=== PATIENT | female | born 1985 | race Caucasian/White ===

== ENCOUNTER 2016-10-18 05:55 | Outpatient (CLI) | payer MEDICAID ==
[~2016-10-18] VITALS: Ht 167.6 cm; Wt 92.1 kg
[~2016-10-18 05:55] MED LIST: ALBU17AE23 IH; CEPH500C PO; CPR500T PO; CYCL10TA9 PO; DULO20CA PO; FLC100T1 PO; HYDR-3583 PO; HYDR-707 PO; LEVO500T69 PO; METR500T PO; NAPR-243 PO; OLAN1CAP5 PO; TRAZ150T42 PO
== END 2016-10-18 11:38 ==
LOC: PREOP 05:55
PROVIDERS: ATTEND Surgery
DX: Z01.818 Encounter for other preprocedural examination (principal); R19.5 Other fecal abnormalities

== ENCOUNTER 2016-10-22 09:46 | Day surgery (SDC) | payer MEDICAID ==
[2016-10-22 09:50] VITALS: BP 113/71
[2016-10-22] MEDS ORDERED: NS IV 1000 ML 1,000 ML IV STA (09:56)
[2016-10-22] MEDS ORDERED: fentaNYL INJECTION 100 MCG/2 ML AMP ONE (12:39)
[2016-10-22] MEDS ORDERED: proPOfol 200 MG/20 ML (DIPRIVAN) VIAL IV ONE (12:39)
[2016-10-22] MEDS ORDERED: MIDAZOLAM 2 MG/2 ML (VERSED) VIAL ONE (14:03)
--- NOTE | 2016-10-22 14:13 | Progress Note-Pre Operative ---
Pre-Operative Progress Note H&P Reviewed The H&P was reviewed, patient examined and no changes noted. Date H&P Reviewed: October 22, 2016 Time H&P Reviewed: 14:10 Pre-Operative Diagnosis: occult positive stool DILIP IVEY DO October 22, 2016 2:13 pm
--- NOTE | 2016-10-22 14:52 | Progress Note-Post Operative ---
Post-Operative Progess Note Surgeon (s)/Feed Research Aide (s) Surgeon DILIP IVEY DO Feed Research Aide: na Pre-Operative Diagnosis occult positive stool Post-Operative Diagnosis normal egd/colonoscopy Procedure & Operative Findings Date of Procedure 10/22/16 Procedure Performed/Findings egd and colonoscopy Anesthesia Type per rooms director Estimated Blood Loss Estimated blood loss (mL): none Specimens/Packing Specimens Removed none DILIP IVEY DO October 22, 2016 2:52 pm
--- NOTE | 2016-10-22 14:53 | Discharge Inst-Simple/Standard ---
Discharge Inst-Standard Patient Instructions/Follow Up Plan of Care/Instructions/FU: Follow up with PCP. Follow up with Dr. Edouard as needed Activity as Tolerated: Yes Discharge Diet: No Restrictions COLLIN CATHERINE APRN October 22, 2016 14:53
[2016-10-22 15:05] VITALS: BP 105/55
[2016-10-22 15:25] VITALS: BP 107/71
[2016-10-22 15:40] VITALS: BP 107/71
[2016-10-22] MEDS ORDERED: HURRICAINE EXT TUBE (BENZOCAINE) ONE (15:43)
[2016-10-22] MEDS ORDERED: HURRICAINE EXT TUBE (BENZOCAINE) XX ONE (17:15)
--- NOTE | 2016-10-23 01:46 | OPERATIVE REPORT ---
DATE OF SERVICE: PREOPERATIVE DIAGNOSIS: Occult positive stool. POSTOPERATIVE DIAGNOSIS: Normal esophagogastroduodenoscopy, colonoscopy. PROCEDURE: Esophagogastroduodenoscopy and colonoscopy. SURGEON: Dr. Dilip Edouard. ANESTHESIA: Per DEPARTMENT MANAGER. ESTIMATED BLOOD LOSS: None. COMPLICATIONS: None. INDICATIONS: The patient is a 30-year-old female who was found to have occult positive stool. She was recommended to have EGD and colonoscopy. She was explained risks and benefits and wished to proceed with procedures. Consent was signed and in chart. PROCEDURE: The patient was taken to the endoscopy suite, placed in left lateral recumbent position. Timeout was performed. Scope was inserted into mouth, down the esophagus, stomach and into the duodenum without difficulty. There were no polyps, mass or ulcerations visualized within the duodenum. The scope was slowly retracted back into the stomach, which further insufflated. There were no polyps, mass or ulcerations present within the stomach. No erythematous changes. The scope was retroflexed noting no further pathology. Scope was returned to its normal position, slowly withdrawn back into the distal esophagus, which had normal appearance. No erythematous changes, polyps, masses or ulcerations. Scope was slowly retracted until completely removed noting no further pathology. Digital rectal exam was performed, there were no palpable polyps, masses or ulcerations. No visual position of any abnormalities. Scope was inserted into the rectum and then advanced all the way to the cecum with minimal difficulty. Prep was adequate. Scope was then slowly retracted back. There were no polyps, masses or ulcerations within the cecum. The ileocecal valve was then partially intubated noting no other pathology. Scope was brought back into the colon, which demonstrated no polyps, masses or ulcerations within the ascending, transverse, descending and sigmoid colon. Once in the rectum, scope was also retroflexed noting no other pathology. Scope was returned to its normal position, slowly withdrawn until completely removed. The patient tolerated procedure well without any complications. She was taken to recovery room in stable condition. No source of bleeding at this time. Occult positive stools could be related to some minimal hemorrhoidal disease. We will have her continue to follow up with her primary care provider. She will need a repeat colonoscopy at age 50 unless family history of colon cancer, which would then be 10 years prior to the age of diagnosis or age 50. Job ID: [id number] DocumentID: [id number] Dictated Date: 10/22/2016 14:55:21 Information Technology Program Manager Date: 10/23/2016 01:45:19 Dictated By: DILIP EDOUARD DO
== END 2016-10-22 15:40 | disposition home or self-care (01) ==
LOC: ENDO 09:46
PROVIDERS: ATTEND Surgery
DX: R19.5 Other fecal abnormalities (principal); J45.909 Unspecified asthma, uncomplicated

== ENCOUNTER 2018-01-16 11:54 | Outpatient (RCR) | payer MEDICAID | END 2018-01-16 12:13 | disposition home or self-care (01) | PROVIDERS: ATTEND Nurse Practitioner Primary Care | DX: M25.562 Pain in left knee (principal) ==